=== PATIENT | female | born 1935 | race Caucasian/White ===

== ENCOUNTER → 2016-11-16 | Outpatient (CLI) | payer OTHER, MEDICARE ==
[~2016-11-16] MED LIST: SYNTHROID25 MCG PO
== END | disposition home or self-care (01) ==
LOC: AMB 07:49
PROC: 0HX3XZZ Transfer Left Ear Skin, External Approach (ICD-10-PCS; principal; 2016-11-16)
DX: C44.219 Basal cell carcinoma of skin of left ear and external auricular canal (principal)
CPT/HCPCS: 88305

== ENCOUNTER 2017-08-14 13:43 | Emergency (ER) | payer OTHER, MEDICARE ==
[~2017-08-14] VITALS: Ht 172.7 cm; Wt 65.9 kg
[2017-08-14 14:19] LABS: HEMATOCRIT 42.7 % (36.0-46.0); HEMOGLOBIN 14.4 G/DL (11.9-15.5); MCH 30.1 PG (29.0-34.0); MCHC 33.7 G/DL (30.0-36.0); MCV 89.3 FL (83-99); PLATELET COUNT 168 K/uL (156-360); RBC DIS.WIDTH-CV 12.4 % (11.8-14.6); RBC DIS.WIDTH-SD 40.7 % (39-53); RED BLOOD COUNT 4.78 M/uL (3.80-5.20); WHITE BLOOD COUNT 6.4 K/uL (4.1-10.2)
[2017-08-14 14:31] LABS: CHLORIDE 106 mEq/L (99-109); POTASSIUM 3.9 mEq/L (3.7-5.4); SODIUM 142 mEq/L (136-147)
[2017-08-14 14:32] LABS: GLUCOSE 107 mg/dL (70-99)
[2017-08-14 14:36] LABS: CREATININE 0.7 mg/dL (0.6-1.3); GFR ESTIMATE (CALCULATED) > 59 mL/min/
[2017-08-14 14:37] LABS: UREA NITROGEN (BUN) 15 mg/dL (9-23)
[2017-08-14 14:40] LABS: TROP-I INTERPRETATION NEGATIVE; TROPONIN-I < 0.01 ng/mL (0.0-0.30)
[2017-08-14 17:18] VITALS: BP 170/76
== END 2017-08-14 17:24 | disposition home or self-care (01) ==
LOC: EME 13:43
PROVIDERS: Emergency Medicine Emergency Medical Services
PROC: 0HQFXZZ Repair Right Hand Skin, External Approach (ICD-10-PCS; principal; 2017-08-14)
DX: S00.83XA Contusion of other part of head, initial encounter (principal); S05.11XA Contusion of eyeball and orbital tissues, right eye, initial encounter; S01.01XA Laceration without foreign body of scalp, initial encounter; S61.411A Laceration without foreign body of right hand, initial encounter; S60.221A Contusion of right hand, initial encounter; W18.30XA Fall on same level, unspecified, initial encounter
CPT/HCPCS: 70450; 80048; 84484; 85027; 93005; 99281; 99285